=== PATIENT | male | born 1970 | race Two or more races ===

== ENCOUNTER 2018-08-02 11:40 | Day surgery (SDC) | payer OTHER ==
[2018-08-02] MEDS ORDERED: MIDAZOLAM 1 MG/ML 2 ML INJ ×3 (14:40→14:41)
[2018-08-02] MEDS ORDERED: FENTAnyl 50 MCG/ML VIAL (14:41)
== END 2018-08-02 18:22 | disposition home or self-care (01) ==
LOC: GIL 11:40
DX: Z12.11 Encounter for screening for malignant neoplasm of colon (principal); K64.8 Other hemorrhoids
CPT/HCPCS: 45378